=== PATIENT | female | born 1985 | race Caucasian/White ===

== ENCOUNTER 2019-04-24 09:52 | Emergency (ER) | payer OTHER ==
[~2019-04-24] VITALS: Ht 172.7 cm; Wt 83.9 kg
--- OUTSIDE RECORDS SUMMARY | 2019-04-24 10:00 | XMS REPORT | Clinical Summary ---
Author Author Admin, [facility] Organization [facility] [employer] Address Unknown Phone Unavailable Allergies, Adverse Reactions, Alerts Allergy Name Reaction Description Start Date Severity Status Provider No Known Allergies Karin CORTEZ Conditions or Problems Problem Name Problem Code Onset Date Status Entry Date Provider Comment Standard Description Annotate HEALTH EXAMINATION OF DEFINED SUBPOPULATION V70.5 Active Kenyetta Toledo LPN Health examination of defined subpopulations Employment physical V70.5 Active Janae Lew APRN Health examination of defined subpopulations Medication List Medication Instructions Start Date Stop Date Generic Name NDC Status Provider Patient Instruction No Drug Therapy Prescribed - none known did ask Karin CORTEZ Vital Signs Date Name Value Unit Range Description blood pressure, diastolic - 8462-4 57 mm[Hg] BP helton blood pressure, systolic - 8480-6 110 mm[Hg] BP sys height E&M - 8302-2 67.75 [in_us] Bdy height pulse rate E&M - 8867-4 77 /min Heart rate temperature E&M 98.0 [degF] Body temperature weight E&M - 3141-9 180 [lb_av] Weight Measured Encounters Code Encounter Date Provider Facility CPT-08681 Employment/ICC Exam 09:02:19 TOOLSMITH Janae Lew APRN [facility] [employer] Procedures Code Procedure Name Date Entry Date Standard Description CPT-86736 Spec Collection and Handling Fee 11:00:44 TOOLSMITH CPT-60837 Spec Collection and Handling Fee 11:18:36 TOOLSMITH
--- OUTSIDE RECORDS SUMMARY | 2019-04-24 10:00 | XMS REPORT | Clinical Summary ---
Author Author Admin, [facility] Organization [facility] [employer] Address Unknown Phone Unavailable Allergies, Adverse Reactions, [...] Measured Encounters Code Encounter Date Provider Facility CPT-47142 Employment/ICC Exam 09:02:19 AGENT PRODUCER Janae Lew APRN [facility] [employer] Procedures Code Procedure Name Date Entry Date Standard Description CPT-33009 Spec Collection and Handling Fee 11:00:44 AGENT PRODUCER CPT-45846 Spec Collection and Handling Fee 11:18:36 AGENT PRODUCER
--- OUTSIDE RECORDS SUMMARY | 2019-04-24 10:00 | XMS REPORT | Clinical Summary ---
Author Author Admin, [facility] Organization [facility] [employer] Address Unknown Phone Unavailable Allergies, Adverse Reactions, [...] Measured Encounters Code Encounter Date Provider Facility CPT-99292 Employment/ICC Exam 09:02:19 REFERENCE ASSISTANT Janae Lew APRN [facility] [employer] Procedures Code Procedure Name Date Entry Date Standard Description CPT-54907 Spec Collection and Handling Fee 11:00:44 REFERENCE ASSISTANT CPT-72996 Spec Collection and Handling Fee 11:18:36 REFERENCE ASSISTANT
--- OUTSIDE RECORDS SUMMARY | 2019-04-24 10:00 | XMS REPORT | Clinical Summary ---
Author Author Admin, [facility] Organization [facility] [employer] Address Unknown Phone Unavailable Allergies, Adverse Reactions, [...] Measured Encounters Code Encounter Date Provider Facility CPT-64153 Employment/ICC Exam 09:02:19 RN ADMISSION Janae Lew APRN [facility] [employer] Procedures Code Procedure Name Date Entry Date Standard Description CPT-58013 Spec Collection and Handling Fee 11:00:44 RN ADMISSION CPT-94431 Spec Collection and Handling Fee 11:18:36 RN ADMISSION
--- OUTSIDE RECORDS SUMMARY | 2019-04-24 10:00 | XMS REPORT | Clinical Summary ---
Author Author Admin, [facility] Organization [facility] [employer] Address Unknown Phone Unavailable Allergies, Adverse Reactions, [...] Measured Encounters Code Encounter Date Provider Facility CPT-46820 Employment/ICC Exam 09:02:19 REFERENCE INVESTIGATOR Janae Lew APRN [facility] [employer] Procedures Code Procedure Name Date Entry Date Standard Description CPT-83084 Spec Collection and Handling Fee 11:00:44 REFERENCE INVESTIGATOR CPT-24516 Spec Collection and Handling Fee 11:18:36 REFERENCE INVESTIGATOR
--- OUTSIDE RECORDS SUMMARY | 2019-04-24 10:00 | XMS REPORT | Clinical Summary ---
Author Author Admin, [facility] Organization [facility] [employer] Address Unknown Phone Unavailable Allergies, Adverse Reactions, [...] Measured Encounters Code Encounter Date Provider Facility CPT-23430 Employment/ICC Exam 09:02:19 INTAKE MAN Janae Lew APRN [facility] [employer] Procedures Code Procedure Name Date Entry Date Standard Description CPT-93577 Spec Collection and Handling Fee 11:00:44 INTAKE MAN CPT-48907 Spec Collection and Handling Fee 11:18:36 INTAKE MAN
--- OUTSIDE RECORDS SUMMARY | 2019-04-24 10:00 | XMS REPORT | Continuity of Care Document ---
Author Organization Unknown Address Unknown Phone Unavailable Allergies There is no data. Medications There is no data. Problems There is no data. Procedures There is no data. Results There is no data. Encounters ACCT No. Visit Date/Time Discharge Status Pt. Type Provider Facility Loc./Unit Complaint [id number] 10/27/2016 16:49:00 ACT Unknown
--- NOTE | 2019-04-24 10:13 | ED Integumentary General ---
General Chief Complaint: Bite-Animal/Human/Insect Stated Complaint: BEE STING; LT ARM SWELLING Nursing Triage Note: Was stung by a bee on Tuesday on the left hand. Swelling has gotten progressively worse and is now almost up to her elbow. Has been taking benadryl, naproxen, using ice packs, and compresses of baking soda and meat tenderizer. Is concerned about the swelling getting worse. Source: patient, RN notes reviewed Exam Limitations: no limitations History of Present Illness Date Seen by Provider: Apr 24, 2019 Time Seen by Provider: 10:12 Initial Comments Patient presents c/ c/o worsening LUE swelling since being bit by a bee on back of her hand on Tuesday. States she took a Benadryl last PM c/ little to no benefit. States her tetanus is current. Timing/Duration: constant, getting worse, other (2 days ago) Severity: moderate Location: hands (left) Possible Cause: insect sting (bee) Modifying Factors: improves with other (none) Associated Symptoms: denies symptoms (x/ as noted) Allergies and Home Medications Allergies Coded Allergies: No Known Drug Allergies (Unverified , 04/24/19) Home Medications Cephalexin 500 Mg Capsule, 1,000 MG PO BID Prescribed by: CONNIE MATIAS on 04/24/19 1023 Patient Home Medication List Home Medication List Reviewed: Yes Review of Systems Review of Systems Constitutional: see HPI : No Skin: see HPI, other (LUE erythema/swelling) All Other Systems Reviewed Negative Unless Noted: Yes (Negative excepted noted.) Past Bwbkqxq-Jkdrke-Kgkerf Hx Patient Social History Alcohol Use: Occasionally Uses Recreational Drug Use: No Smoking Status: Never a Smoker 2nd Hand Smoke Exposure: No Recent Foreign Travel: No Contact w/Someone Who Travel: No Recent Infectious Disease Expo: No Recent Hopitalizations: No Physical Abuse: No Sexual Abuse: No Mistreated: No Fear: No Seasonal Allergies Seasonal Allergies: No Past Medical History Surgeries: Yes Section Respiratory: No Cardiac: No Neurological: No Genitourinary: No Gastrointestinal: No Musculoskeletal: No Endocrine: No HEENT: No Cancer: No Psychosocial: No Integumentary: No Blood Disorders: No Adverse Reaction/Blood Tranf: No Physical Exam Vital Signs Vital Signs - First Documented 04/24/19 10:05 Temp 98.7 Pulse 75 Resp 16 B/P (MAP) 138/87 (104) Pulse Ox 99 Capillary Refill : Less Than 3 Seconds General Appearance: WD/WN, no apparent distress Cardiovascular: regular rate, rhythm Respiratory: no respiratory distress Extremities: swelling (left hand to just below left elbow; (+) erythema/blanching; no evidence of retained stinger from bee dorsum of left hand.) Neurologic/Psychiatric: no motor/sensory deficits, alert, normal mood/affect, oriented x 3 Skin: warm/dry Skin Problem Location: upper extremities (left) Skin Problem Character: blanching, erythema, swelling Progress/Results/Core Measures Results/Orders My Orders Orders - CONNIE MATIAS DO Methylprednisolone Acetate Inj (Depo-Med (04/24/19 10:30) Cephalexin Capsule (Keflex Capsule) (04/24/19 10:30) Loratadine Tablet (Claritin Tablet) (04/24/19 10:30) Medications Given in ED Current Medications Medications Dose Ordered Sig/Cullen Route Start Time Stop Time Status Last Admin Dose Admin Cephalexin HCl 1,000 mg ONCE ONCE PO 04/24/19 10:30 04/24/19 10:31 DC 04/24/19 10:28 1,000 MG Methylprednisolone Acetate 80 mg ONCE ONCE IM 04/24/19 10:30 04/24/19 10:31 DC 04/24/19 10:30 80 MG Vital Signs/I&O 04/24/19 04/24/19 10:05 10:34 Temp 98.7 98.7 Pulse 75 75 Resp 16 16 B/P (MAP) 138/87 (104) 138/87 (104) Pulse Ox 99 99 Blood Pressure Mean: 104 Departure Impression Primary Impression: Bee sting Additional Impression: Cellulitis &/or allergic reaction LUE Disposition: HOME, SELF-CARE Condition: Stable Departure-Patient Inst. Decision time for Depature: 10:20 Referrals: [facility] Patient Instructions: Insect Bites and Stings (DC) Add. Discharge Instructions: RECOMMEND 50 mg OF BENADRYL EVERY 6 HOURS, OR ZYRTEC/CLARITIN DAILY. All discharge instructions reviewed with patient and/or family. Voiced understanding. Scripts Cephalexin (Keflex) 500 Mg Capsule 1000 MG PO BID for 7 Days, #28 CAP 0 Refills Prov: CONNIE MATIAS DO 04/24/19 CONNIE MATIAS DO Apr 24, 2019 10:12
[2019-04-24] MEDS ORDERED: CEPH-507 PO (10:23)
[2019-04-24] MEDS ORDERED: methylPREDNISolone 80 MG/ML (DEPO MEDROL) VIAL IM ONE (10:30)
[2019-04-24] MEDS ORDERED: CEPHALEXIN 250 MG (KEFLEX) CAP PO ONE (10:30)
[2019-04-24] MEDS ORDERED: LORATADINE (CLARITIN) 10 MG TAB PO ONE (10:30)
[2019-04-24 10:34] VITALS: BP 138/87
== END 2019-04-24 10:37 | disposition home or self-care (01) ==
LOC: ER FS 09:54
DX: T63.441A Toxic effect of venom of bees, accidental (unintentional), initial encounter (principal); L03.114 Cellulitis of left upper limb
CPT/HCPCS: 99284